=== PATIENT | male | born 1965 | race Caucasian/White ===

== ENCOUNTER 2016-09-08 16:07 | Observation (INO) | payer MEDICAID, OTHER ==
[~2016-09-08] VITALS: Ht 185.4 cm; Wt 160.3 kg
[2016-09-08 16:19] VITALS: BP 185/111; PULSE 102; RESP 22; O2SAT 98
--- NOTE | 2016-09-08 16:29 | ED.REPORT ---
HPI-General Illness Date of Service Sep 08, 2016 ED Provider: Henry Sultana MD A 51 year old male with a history of SVT, hypertension, hypothyroidism, obesity , suspected CAD and type II diabetes mellitus presents to the ED via EMS with heart palpitations that began at 1515. EMS report that the patient was tachycardic upon arrival. En route, rhythm strip revealed A-fib with RVR, then changed into a wide complex tachycardia suggestive of ventricular tachycardia. IV was placed en route and he cardioverted and is tachycardic upon arrival to the ED. Patient was reportedly sitting down and eating when his symptoms began and took 2 aspirin after onset and felt little relief. Associated symptoms include a chest pressure of 2/10 that radiates to his left arm, worsening anxiety and SOB. Patient recently had a stress test on 08/23 while admitted at [facility] for angina and a dizzy episode. His stress test revealed EF of 65% and possible V-tach. He was discharged with metoprolol. His current medication list includes levothyroxine, metformin and lisinopril. He denies any lightheadedness during the palpations. Nursing Notes Stated Complaint: CHEST PAIN Chief Complaint: Chest Pain Nursing Notes Reviewed: Yes Allergies: Coded Allergies: No Known Allergies (Unverified , 09/08/16) Scheduled Ergocalciferol (Vitamin D2) (Vitamin D) 400 Unit Tablet 12,000 UNIT PO DAILY Isosorbide MN ER (Isosorbide MN ER) 30 Mg Tab.er.24h 30 MG PO HS Levothyroxine Sodium (Levo-T) 100 Mcg Tablet 100 MCG PO DAILY Lisinopril (Lisinopril) 20 Mg Tablet 20 MG PO HS Metformin (Metformin) 500 Mg Tablet 500 MG PO DAILYWD Metoprolol Tartrate (Metoprolol Tartrate) 25 Mg Tablet 25 MG PO BID Trazodone (Trazodone) 100 Mg Tablet 100 MG PO HS General Time Seen by MD: 16:18 Chief Complaint Other (Heart palpitations) Hx Obtained From: Patient Arrived By: Ambulance Sudden in Onset?: Yes Onset Occurred: Just prior to arrival Symptom Duration: Since onset Location: : Chest Quality: Pressure Radiation: : Arm left Severity: Current: Pain level 2 out of 10 Severity: Maximum: Pain level 2 out of 10 Associated with: Reports: Chest pain (pressure ), Difficulty breathing, Shortness of breath Pertinent Negative: Pt denies other symptoms Recent Healthcare: Recent doctor visit, Recent hospitalization Past Medical History Past Medical History 1. SVT 2. Hypertension 3. Hypothyroidism 4. CAD - possible 5. Type II diabetes 6. Obesity Past Surgical History None reported at this time. Family History Reports: CAD < 40 years old, Coronary artery disease Smoking History Current Every Day Smoker Social History Alcohol Use: Denies alcohol use Drug Use: Denies drug use Other Social History: Good social support, , Local resident Ambulatory Status Independent Review of Systems Full Review of Systems Constitutional: Denies: Chills, Fever Respiratory: Reports: Shortness of breath Cardiovascular: Reports: Chest pain (chest pressure), Palpitations Musculoskeletal: Reports: Extremity pain (pain from chest radiates to left arm ) Neurologic: Denies: Change LOC Psychiatric: Reports: Anxiety Complete sys rev & neg: except as marked. Physical Exam Vital Signs Vital Signs Date Time Temp Pulse Resp B/P Pulse Ox O2 Delivery O2 Flow Rate FiO2 09/08/16 18:17 85 16 150/91 98 Room Air 09/08/16 17:33 84 16 174/103 99 Room Air 09/08/16 16:34 90 20 165/87 98 Room Air 09/08/16 16:19 36.8 102 22 185/111 98 Room Air Initial VS: Reviewed Neck: Supple, Non-tender, Full range of motion Skin: Warm, Dry, No cyanosis Neurologic: Alert, Oriented, Nonfocal Psychiatric: Mood/affect normal, Behavior normal, Normal thought content General/Constitutional: Awake, Alert Behavior: Positive: Anxious Head / Eyes: Atraumatic, Normocephalic, PERRL Respiratory / Chest: Atraumatic, Breath sounds NL, Breath sounds = bilat, No respiratory distress Cardiovascular: Heart rate NL, Regular rhythm, Heart sounds NL, No gallop, No murmurs, No rubs, Peripheral circulation NL, Pulses = bilaterally (Good distal pulses ) Abdomen: Atraumatic, Soft, Non-tender, No distention Upper Extremities Upper Extremity / MS: Atraumatic, Inspection NL, Neurologic intact, Vascular intact (Skin is warm and well perfused ) Lower Extremity / Pelvis / MS: Atraumatic, No swelling (No calf swelling ), Non -tender (No tenderness), Neurologic intact, Vascular intact (Skin is warm and well perfused ), No edema Neurologic: Oriented X3, Speech NL, No motor deficits, No sensory deficits, CN II - XII intact, Reflexes equal bilat Interpretation & Diagnostics Lab Results Interpretation Result Diagram: 09/08/16 1615 09/08/16 1615 Test 09/08/16 16:15 09/08/16 16:50 09/08/16 17:32 White Blood Count 13.5th/mm3 (3.8-10.1) Red Blood Count 5.44mil/mm3 (4.40-5.80) Hemoglobin 17.1g/dL (13.8-17.2) Hematocrit 50.3% (41.0-50.0) Mean Corpuscular Volume 92.5fL (81-100) Mean Corpuscular Hemoglobin 31.4pg (27.0-35.0) Mean Corpuscular Hemoglobin Concent 34.0% (32.0-37.0) Red Cell Distribution Width 14.2% (12.3-15.4) Platelet Count 259bil/L (150-400) Neutrophils (%) (Auto) 47.7% (40-74) Lymphocytes (%) (Auto) 38.5% (14-46) Monocytes (%) (Auto) 9.3% (4-12) Eosinophils (%) (Auto) 3.5% (0-5) Basophils (%) (Auto) 0.6% (0-3) Activated Partial Thromboplast Time 28.4sec (22.8-33.0) Sodium Level 136mEq/L (134-144) Potassium Level 4.4mEq/L (3.5-5.2) Chloride Level 98mEq/L (97-108) Carbon Dioxide Level 19mmol/L (18-29) Blood Urea Nitrogen 15mg/dL (6-24) Creatinine 1.06mg/dL (0.76-1.27) Estimat Glomerular Filtration Rate 78mL/min (>59) Glucose Level 163mg/dL (60-99) Calcium Level 9.9mg/dL (8.5-10.1) Magnesium Level 2.2mg/dL (1.6-2.6) Total Bilirubin 0.3mg/dL (0.0-1.2) Aspartate Amino Transf (AST/SGOT) 20U/L (0-50) Alanine Aminotransferase (ALT/SGPT) 19U/L (0-44) Alkaline Phosphatase 97U/L (25-150) Total Protein 7.7g/dL (6.4-8.4) Albumin 3.9g/dL (3.4-5.0) Thyroid Stimulating Hormone (TSH) 9.720uIU/mL (0.450-4.500) Hold Wylie Top Tube Received (Received) Free Thyroxine 1.07ng/dL (0.82-1.77) Hold Urine Received (Received) ECG Interpretation ECG Interpretation: Sinus Rhythm Rate 94 bpm Prolonged MA interval No acute ST changes No T wave abnormalities Time: 16:48 Interpreted by: ED physician X-Ray Chest Interpretation Chest Xray Interpretation: IMPRESSION: No acute cardiopulmonary disease. Dictated by: Zoran Lewis M.D. on 09/08/2016 at 16:51 Interpretation / Wet Read by: Interpret - Radiologist Re-Eval/Medical Decision Med Decision/Clinical Course A 51 year old male with a history of SVT, hypertension, hypothyroidism, obesity , suspected CAD and type II diabetes mellitus presents to the ED via EMS with heart palpitations that began at 1515. EMS report that the patient was tachycardic upon arrival. En route, rhythm strip revealed A-fib with RVR, then changed into a wide complex tachycardia suggestive of ventricular tachycardia. IV was placed en route and he cardioverted and is tachycardic upon arrival to the ED. Here in the emergency department the patient is extremely anxious though otherwise afebrile and hemodynamically stable. EKG was obtained as above and demonstrated sinus rhythm. I did however review his rhythm strip from EMS which clearly demonstrated sinus tachycardia converting to atrial fibrillation with RVR and then in a regular wide complex tachycardia suggestive of ventricular fibrillation versus atrial fibrillation with aberrant conduction. Patient was placed on continuous cardiac monitoring/pulse oximetry. No arrhythmia was detected on telemetry monitoring during his emergency department visit. In additional 162 mg of oral aspirin was administered here in the emergency department. The patient was very anxious and I administered 1 mg of IV Ativan. Reviewed recent chart from [facility] 08/09_17 2 wks ago Troponin and BNP unremarkable D-dimer negative CBC and CMP unremarkable except leukocytes = 13 Chest x-ray at the time was unremarkable Stress test "very poor exercise tolerance" LBBB during test, thought rate related though they mention that this may have been ventricular tachycardia Ejection fraction of 65% Abnormal motion of anteroseptal region during stress test Discharged on metoprolol 25 bid Here in the emergency department CBC was obtained which demonstrated mild leukocytosis was otherwise unremarkable. CMP was unremarkable. Troponin was negative. TSH was somewhat elevated at 9. Patient was discussed with rn homecare as I am somewhat concerned given that he did have a well captured episode of wide complex tachycardia concerning for ventricular tachycardia versus atrial fibrillation with aberrant conduction. Moreover, the patient has multiple coronary artery disease risk factors and was complaining of chest pain during this episode. This accommodation with his recent abnormal stress test concerns me that he may be at high risk for acute coronary syndrome versus significant hemodynamically and stable arrhythmia. Consulting rn homecare shares these concerns and recommends admission to the hospitalist service for further risk stratification and telemetry monitoring. Recommend increasing her metoprolol to 25 mg 3 times a day. First dose administered here. Transferred in stable condition. Time of Eval: 17:24 Patient Status: Condition improved Re-Evaluation/Progress Note: Patient is rechecked. He reports that he is feeling much better. He is informed of his EKG results and X-ray results. Time of Eval: 17:54 Patient Status: Condition improved Re-Evaluation/Progress Note: Patient understands and agrees with the plan to admit. All questions are addressed. Consultation #1: Referral / Consult Name: Amy Buckner MD Consulted With: Cardiology Call Returned at: 17:49 Buckle Strap Puncher: Will see patient, Agrees with eval, Agrees with plan Note: Agrees to consult Consultation #2: Referral / Consult Name: Jhon Hector MD Consulted With: Hospitalist Call Returned at: 18:20 Buckle Strap Puncher: Will see patient, Agrees with eval, Agrees with plan, Accepts admit Counseled Regarding: Diagnosis, Lab results, Need for admission Discharge & Departure Primary Impression: Chest pain Chest pain type: unspecified Qualified Code: R07.9 - Chest pain, unspecified Additional Impressions: Ventricular tachycardia Atrial fibrillation with RVR Lightheadedness Wide-complex tachycardia Hypothyroidism Hypothyroidism type: unspecified Qualified Code: E03.9 - Hypothyroidism, unspecified Leukocytosis Leukocytosis type: unspecified Qualified Code: D72.829 - Elevated white blood cell count, unspecified Disposition: ADMITTED TO HOSPITAL Discharge Condition All VS Reviewed: Yes Condition: Stable Referrals: Eleanor Lutz (PCP) Crit Care Except Billable Proc Time Spent: 105-134 minutes Services Performed: Patient management by me, Time spent at bedside, Reviewing test results, Reviewing imaging, Discussing patient care, Documentation in record, Time with fam/surrogate Scribe Attestation Portions of this note were transcribed by Reinaldo Young. I, Dr. Sultana personally performed the history, physical exam and medical decision-making; I reviewed and confirmed the accuracy of the information in the transcribed note. Signed by: Vee Oleary, 09/08/16 1800. copies to: Eleanor Lutz Beck O MD Sep 08, 2016 16:29 REINALDO YOUNG Sep 08, 2016 16:40
[2016-09-08 16:31] LABS: BASOPHILS % (AUTO) 0.6 % (0-3); NEUTROPHILS % (AUTO) 47.7 % (40-74)
[2016-09-08 16:34] VITALS: BP 165/87; PULSE 90; RESP 20; O2SAT 98
[2016-09-08 16:37] LABS: EOSINOPHILS % (AUTO) 3.5 % (0-5); MONOCYTES % (AUTO) 9.3 % (4-12); Mean Corpuscular Hemoglobin 31.4 pg (27.0-35.0); Mean Corpuscular Volume 92.5 fL (81-100); Platelet Count 259 bil/L (150-400)
--- NOTE | 2016-09-08 16:52 | DRSVH ---
PROCEDURE: X-RAY CHEST ONE VIEW, PORTABLE ([id number]) INDICATIONS: 51-year-old male with chest pain. TECHNIQUE: One view of the chest was acquired. COMPARISON: [facility], CR, XR CHEST 1V PORTABLE, 08/22/2016, 6:41 PM. FINDINGS: Surgical changes and devices: None. Lungs and pleura: No pleural effusions or pneumothorax. Lungs are clear. Mediastinum: Mediastinal contours appear normal. Heart size is normal. Bones and chest wall: No suspicious bony lesions. Overlying soft tissues appear unremarkable. IMPRESSION: No acute cardiopulmonary disease. Dictated by: Zoran Lewis M.D. on 09/08/2016 at 16:51 Approved by: Zoran Lewis M.D. on 09/08/2016 at 16:51
[2016-09-08 16:57] LABS: Magnesium 2.2 mg/dL (1.6-2.6); TROPONIN T < 0.010 ug/L (0.0-0.011)
[2016-09-08 17:33] VITALS: BP 174/103; PULSE 84; RESP 16; O2SAT 99
[2016-09-08 18:17] VITALS: BP 150/91; PULSE 85; RESP 16; O2SAT 98
[2016-09-08] MEDS ORDERED: Alum-Mag Hydrox-Simeth 30 mL Suspension PO PRN (18:55)
[2016-09-08] MEDS ORDERED: Polyethylene Glycol (PEG) 17 Gm Powder PO PRN (18:55)
[2016-09-08] MEDS ORDERED: Ondansetron 2 mg/mL 2 mL Inj IVPUSH PRN (18:55)
--- NOTE | 2016-09-08 19:18 | PCM.HPMED ---
Subjective Date of Service Sep 08, 2016 Primary Provider: Admitting Physician: Anibal Finch MD Primary Care Physician: Rosalie Martinez MD Attending Physician: Anibal Finch MD Chief Complaint: palpitation/1 hr History of Present Illness: 51-year-old gentleman with past medical history of hypertension, type II diabetes, obesity, recently diagnosed with SVT was brought in by EMS due to palpitation which happened 30 minutes prior to arrival. Patient had substernal chest pain 12/17 and palpitations 2 weeks ago and presented to [facility] on 08/23. He was admitted for overnight observation, underwent stress test. Serial troponin was negative. Stress test showed very poor exercise tolerance during the stress. He states he developed palpitations immediately after he was given medications for stress test. He reportedly developed a LBBB which was rate related. Note from [facility] says" initially , there was concern this would be wide complex tachycardia, but looking more carefully at the study it is probably rate related LBBB.". Next morning patient underwent resting images which showed ejection fraction of 65% with activities, 75% resting and 65% post stress. There was a small defect of mild intensity present in the midanterior septal location that was thought to be reversible. He was started on metoprolol 25 mg by mouth twice a day and Imdur 30 mg by mouth daily and discharged. He has been doing well for the last 2 weeks except for 2 -3 episodes of brief palpitations lasting 3 minutes. He states he developed sudden onset, more severe episode of palpitation this afternoon at the 3:00. He had associated lightheadedness and chest tightness which is very mild as compared to chest pain he had on last episode 2 weeks ago.He also states he felt extreme anxiety during episode .Denied diaphoresis.has mild dyspnea during episodes .he has lightheadedness during episodes On EMS arrival he was in A. fib with RVR rate of 186, he also had a brief run of which seems wide complex tachycardia. He converted to NSR in ED . ED Course:BP 185/111,Afib with RVR reverted to NSR,afebrile,EKG NSR no st/t wave changes troponin negative,TSH elevated at 9.7 Review of Systems: Comprehensive review of systems performed, pertinent positives and negatives included in history of present illness. Allergies Coded Allergies: No Known Allergies (Unverified , 09/08/16) Home Medications Recently started metoprolol 25 mg twice a day Recently started Imdur 30 mg by mouth daily Vitamin D 12,000 units daily Levothyroxine 100 MCG daily Lisinopril 20 mg by mouth daily Metformin 500 mg by mouth daily Trazodone 100 mg at bedtime PMH Recent diagnosis of SVT Hypertension Diabetes Surgical History ankle and knee surgery Family History Significant family history of coronary artery disease. His father had CABG ,2 paternal uncles with CABG as well One uncle of heart attack at age 60. Social History Occupation: unemployed Hx Alcohol Use: No Hx Substance Use: No Smoking Status: Current Every Day Smoker Exam Vital Signs Vital Sign - Last Date Time Temp Pulse Resp B/P Pulse Ox O2 Delivery O2 Flow Rate FiO2 09/08/16 18:17 85 16 150/91 98 Room Air 09/08/16 16:19 36.8 Exam Gen.Obsese patient is lying comfortably in hospital bed HEENT: Head is normocephalic atraumatic, Pupils equal and reactive, extraocular movements intact, Lungs clear to auscultation bilaterally Heart regular rate and rhythm without murmurs gallops or rubs Abdomen soft nontender without hepatosplenomegaly Extremities pulses are present dorsalis pedis posterior tibialis and radial. tSkin is warm and dry there are no rashes, Psych alert and oriented to person place and time Neuro cranial nerves II through XII are grossly intact Lymph: There is no lymphadenopathy appreciated in the cervical supra infraclavicular regions : no baltazar Lab and Diagnostics Result Diagram: 09/08/16 1615 09/08/16 1615 12-lead ECG NSR no st/t wave changes Assessment & Plan 51-year-old gentleman with past medical history of hypertension, type II diabetes, obesity, recently diagnosed with SVT was brought in by EMS due to palpitation which happened 30 minutes prior to arrival. # Episodes of SVT and Afib with RVR ,acute -patient has multiple episodes SVT(from [facility] records ) and Afib with RVR rate 186 in Ed and EMS strip,SVT with aberrancy ( EMT rythm strip) -increased home metoprolol to 25 mg tid as per cardiology -started heparin drip -may need ischemic workup given recent abnormal stress test .patient reluctant to have any repeat stress test given episodes of SVT during test.will try to get stress test results from [facility] -now in sinus rhythm -hemodynamically stable -he had a brief SVT with aberrancy in ED .VT unlikely given he was hemodynamically stable during rythm -tele,metry -echo ordred -electrolytes stabe, -troponin negative x2 ,will trend -will consider cardizem drip if any Afib with RVR -Dr Buckner will see him in am # suspected CAD,chronic -recent stress test abnormal with suspected reversible ischemia on midanterior septal location -cardiology consulted -c/w ASA,metoprolol -started atorvastatin -c/w Imdur # hypothyroidism -TSH elevated,patient states his synthroid was increased recently,will not increase dose for now -FT4 ordered # DM -hold metformin -insulin sliding scale #HTN -c/w metoprolol and lisinopril # DVt ppx -heparin drip # morbid obesity -BMI 46 #current smoker -nicotine patch Full code inpatient status given pending workup Resuscitation Status: CPR: Attempt Resuscitation copies to: Rosalie Martinez MD, Melaku MD Sep 08, 2016 19:18
[2016-09-08 20:19] VITALS: BP 149/88; PULSE 77; RESP 16; O2SAT 99
[2016-09-08] MEDS: Heparin 25K Unit/500mL 0.45 NS 25,000 UNIT in IV Premix 1 EACH IV SCH (20:22)
[2016-09-08] MEDS ORDERED: Glucose 40% Oral Gel 15 Gm Tube PO PRN (20:40)
[2016-09-08] MEDS ORDERED: METO25TA6 PO (20:40)
[2016-09-08] MEDS ORDERED: LEVO-88 PO (20:40)
[2016-09-08] MEDS ORDERED: LISI-567 PO (20:40)
[2016-09-08] MEDS ORDERED: ISOS30TA4 PO (20:40)
[2016-09-08] MEDS ORDERED: ERGO400T3 PO (20:40)
[2016-09-08] MEDS ORDERED: METF500T4 PO (20:40)
[2016-09-08] MEDS ORDERED: TRAZ-118 PO (20:40)
[2016-09-08 21:53] VITALS: PULSE 66
[2016-09-08] MEDS: Insulin LISPRO 300 Unit/3 mL Inj SUBQ SCH (21:53)
[2016-09-09] VITALS (9 sets, daily range): BP systolic 100–169; BP diastolic 63–94; PULSE 62–102; RESP 16–18; O2SAT 97–99
[2016-09-09] MEDS: Heparin 5,000 Unit/mL Inj IVPUSH PRN ×3 (02:19→21:04)
[2016-09-09] MEDS: Insulin LISPRO 300 Unit/3 mL Inj SUBQ SCH ×5 (07:36→21:05)
[2016-09-09 07:42] LABS: BASOPHILS % (AUTO) 0.8 % (0-3); EOSINOPHILS % (AUTO) 5.4 % (0-5); MONOCYTES % (AUTO) 8.4 % (4-12); Mean Corpuscular Volume 92.2 fL (81-100); NEUTROPHILS % (AUTO) 44.4 % (40-74); Platelet Count 214 bil/L (150-400)
[2016-09-09] MEDS: Isosorbide Mononitrate 30 mg ER24 Tablet PO SCH (07:43)
[2016-09-09 08:19] LABS: TROPONIN T 0.01 ug/L (0.0-0.011)
[2016-09-09 08:30] LABS: Magnesium 2.2 mg/dL (1.6-2.6)
--- NOTE | 2016-09-09 12:19 | PCM.PNMED ---
Subjective Date of Service Sep 09, 2016 Subjective Jhon Weeks is a 51-year-old man with past medical history significant of hypertension, type II diabetes, obesity, recently diagnosed with SVT was brought in by EMS due to palpitation which happened 30 minutes prior to arrival. Hospital day #2 Overnight: No acute events. Today: The patient denies any chest pain, shortness of breath, palpitations, or cough. He overall states he feels well. The remainder of the review of systems is negative except as noted above. Exam Vital Signs Vital Sign - Last Date Time Temp Pulse Resp B/P Pulse Ox O2 Delivery O2 Flow Rate FiO2 09/09/16 05:24 71 09/09/16 05:16 36.4 16 138/83 98 Room Air Exam Gen: Obese patient is lying comfortably in hospital bed HEENT: Head is normocephalic atraumatic, Pupils equal and reactive, extraocular movements intact, Lungs: clear to auscultation bilaterally Heart regular rate and rhythm without murmurs gallops or rubs Abdomen soft nontender without hepatosplenomegaly Extremities pulses are present dorsalis pedis posterior tibialis and radial. Skin is warm and dry there are no rashes, Psych alert and oriented to person place and time Neuro cranial nerves II through XII are grossly intact Lymph: There is no lymphadenopathy appreciated in the cervical supra infraclavicular regions : no Sommers IVs and Medications Medications Reviewed: Medications were reviewed in detail Lab and Diagnostics Result Diagram: 09/09/16 0730 09/08/16 1615 12-lead ECG NSR no st/t wave changes Assessment & Plan Jhon Weeks is a 51-year-old man with past medical history significant of hypertension, type II diabetes, obesity, recently diagnosed with SVT was brought in by EMS due to palpitation which happened 30 minutes prior to arrival. Hospital day #2 # SVT and Afib with RVR, acute -Patient has multiple episodes SVT (from [facility] records ) and Afib with RVR rate 186 in Ed and EMS strip, SVT with aberrancy (EMT rhythm strip) -Increased home metoprolol to 25 mg tid as per cardiology -Started heparin drip, continue for now -May need ischemic workup given recent abnormal stress test. Patient reluctant to have any repeat stress test given episodes of SVT during test. Will try to get stress test results from [facility] -Now in sinus rhythm, telemetry overnight also NSR -Hemodynamically stable -ECHO results pending -Troponin negative x3 -Will consider Cardizem drip if any Afib with RVR -CHADS-VASC score of 2, will initiate warfarin -Dr Buckner seeing the patient, appreciate the expertise # Suspected CAD,chronic -Recent stress test abnormal with small suspected reversible ischemia on midanterior septal location -Cardiology consulted -Continue Imdur, ASA, metoprolol -Started atorvastatin # Suspected obstructive sleep apnea -Likely contributing factor in patients arrhythmias -Recommend outpatient sleep study Chronic issues, present on admission: # Hypothyroidism -TSH elevated, patient states his Synthroid was increased recently, will not increase dose for now -FT4 normal, will need increase in Synthroid outpatient # Diabetes mellitus, type 2, not insulin using -Hold metformin -Lispro correctional insulin # Hypertension -Continue metoprolol and lisinopril DVT prophylaxis -heparin drip # Morbid Obesity -BMI 46 # Current smoker -Nicotine patch Dispo: Anticipate patient can be discharged tomorrow if remains stable on warfarin Resuscitation Status: CPR: Attempt Resuscitation Attending Statement The patient was seen and examined independently on 09/09/2016 and case discussed with Dr. Cuellar, I agree with the history, exam and plan as outlined in the note above. Yola Cuellar DO Sep 09, 2016 08:15 Anibal Finch MD Sep 09, 2016 12:46
--- NOTE | 2016-09-09 12:37 | DRSVH ---
[facility] [address] [place] [address] Echocardiogram Report Name: EFREN ZEPEDA SStudy Date: 017 Height: 73 in Hospital Exam Location: [facility] Weight: 353 lb Gender: Male BSA: 2.7 m2 : 1965 Age: 51 yrs BP: 138/83 mmHg Reason For Study: PALPITATIONS Ordering Physician: HOSPITALIST JEANIEerformed By: Neal Flowers Referring Physician: Rosalie Martinez Interpretation Summary 1. Normal left ventricular size, wall thickness and systolic function with an estimated EF of 60-65% 2. Normal right ventricular size and systolic function. 3. No evidence for valvular pathology. There is no old study for comparison Procedure: A two-dimensional transthoracic echocardiogram with color flow and Doppler was performed. The study quality was technically adequate. There is no prior echocardiogram noted for this patient. A contrast injection of Definity was performed to improve assessment of LV function. The patient was in normal sinus rhythm during the exam. Left Ventricle: The left ventricle is normal in size. Left ventricular wall thickness is borderline increased. The ejection fraction is estimated to be 60-65%. No obvious wall motion abnormalities. Right Ventricle: The right ventricle is normal in size and function. Atria: Both atria are normal in size. No color doppler evidence for an ASD. Mitral Valve: The mitral valve is normal in structure and function. There is no mitral regurgitation noted. Aortic Valve: The aortic valve is not well visualized. The aortic valve is grossly normal. There is no aortic valve stenosis. No aortic regurgitation is present. Tricuspid Valve: The tricuspid valve leaflets are thin and pliable. No tricuspid regurgitation. Pulmonary artery pressures cannot be estimated because of the lack of a measurable TR jet velocity. Pulmonic Valve: The pulmonic valve is not well visualized. Great Vessels: The aortic root is normal size. The dimensions of the ascending aorta are normal. The pulmonary artery is normal size. The IVC is dilated (diameter is greater than 2.1 cm) and it collapses less than 50% with a sniff. This suggests a high right atrial pressure of 15 mm Hg. Pericardium/ Pleura There is no pericardial effusion. There is no pleural effusion. MMode/2D Measurements & Calculations LVIDd: 4.4 cm LA dimension: 4.6 cm RA long axis Ao root diam LVIDs: 2.6 cm FS: 40.6 % LA A2 area: 25.7 cm RA area Aortic Jxn: 2.9 cm EPSS: 0.28 cm LA A4 area: 23.1 cm asc Aorta Diam IVSd: 1.1 cm LA length (vol) : 21.9 cm LVPWd: 0.95 cm RA vol Ao Arch Diam (Prox LA vol: 86.1 ml : 84.0 ml Trans): 2.6 cm LA vol index RA : 30.7 mm2 IVC diam: 2.9 cm LV mejía. diameter/BSA LV sys. diameter/BSA (cm/m^2): 1.6 (cm/m^2): 0.96 Doppler Measurements & Calculations Ao V2 max MV E max maciel MV E/A: 0.82 PA V2 max: 104.3 cm/sec : 137.0 cm/sec : 74.1 cm/sec Med Peak E' Maciel PA mean P.7 mmHg Ao max PG MV A max maciel PA Accel Time: 0.11 sec : 7.5 mmHg : 90.1 cm/sec E/E' med: 13.5 Ao mean PG Pulm A Revs Dur : 4.2 mmHg MV A dur: 0.12 sec MV dec time Ao V2 mean PA V2 mean Pulm A Revs Dur - MV A : 0.20 sec : 98.3 cm/sec : 79.6 cm/sec Dur: -0.05 msec Ao V2 VTI PA pr(Accel) : 28.3 cm : 29.1 mmHg Reading Physician:12:36 PM
--- NOTE | 2016-09-09 12:49 | PCM.PHAPRO ---
Progress Warfarin Management by Pharmacy: -Indication: afib -Home Dose: new start -Concurrent Anticoagulation: Heparin cardiac infusion -[id number] Score: 2 (htn and dm) -H/H 15.9/45.8 -PLT 214 -Inr Goal: 2-3 -Inr today = 1 -Plan: will initiate warfarin dosing with 10mg this evening and follow. serial inr's have been ordered Sarah Beth Mcclendon [facility] Sep 09, 2016 12:49
--- NOTE | 2016-09-09 16:49 | CONS ---
[address] [address] CONSULTATION REPORT PATIENT: EFREN ZEPEDA : 1965 MR#: [id number] ADMIT: 09/08/2016 JOB ID: [id number] DATE OF SERVICE: 09/09/2016 CHIEF COMPLAINT: I was asked by the hospital team to consult on this patient given arrhythmia and chest pain. HISTORY OF PRESENT ILLNESS: The patient is a 51-year-old man with past medical significant for hypertension, diabetes mellitus. He was recently seen at [facility] a couple of weeks ago with chest discomfort. He ruled out by serial cardiac markers and underwent stress testing, during which he exercised and developed a probable rate-related left bundle-branch block. Serial troponins were negative. He also had imaging obtained which showed a possible small defect in the mid anteroseptal location that was thought to be reversible. EF was normal. He was started on metoprolol to be taken twice a day as well as Imdur. He was discharged with plans for followup with Cardiology. Yesterday, he developed what he said felt like an anxiety attack, although he says he has no history of anxiety. He did not have chest pressure or chest tightness but ultimately called medics. Medics found him initially in sinus rhythm which went into atrial fibrillation versus another atrial arrhythmia with rapid ventricular response. Also had a wide complex tachyarrhythmia which could be aberrancy versus ventricular tachycardia. The patient spontaneously went out of this arrhythmia. He was admitted for overnight observation and is now ruled out by serial cardiac markers and he has not had any arrhythmias overnight. In speaking with him, he said he was only taking metoprolol tartrate once a day because he misunderstood the directions and now he is on metoprolol three times a day at 25 mg. He says he feels fine at this juncture. He denies problems with chest pain, chest tightness with exertion. He denies problems with shortness of breath. He denies orthopnea, PND, lower extremity edema. He does not have a history of sleep apnea, but there is suspicion that he may have this problem. PAST MEDICAL HISTORY/PROBLEM LIST: 1. History of diabetes mellitus. 2. History of hypertension. 3. History of hypothyroidism. CURRENT MEDICATIONS: 1. Metoprolol 25 mg twice a day although he was only taking once a day. 2. Imdur 30 mg a day. 3. Vitamin D. 4. Levothyroxine 100 mcg daily. 5. Lisinopril 20 daily. 6. Metformin 500 mg daily. 7. Trazodone at bedtime. ALLERGIES: No known drug allergies. SOCIAL HISTORY: He is a smoker, but is trying to cut down. Alcohol: He drinks none. FAMILY HISTORY: Notable for an uncle who suddenly. There are some heart problems in the family, but no early coronary disease. REVIEW OF SYSTEMS: Overall health: No fevers, chills, night sweats, or weight loss. GI: No problems with ulcers or blood in her stool. : No dysuria, hematuria. Pulmonary: No history of lung disease. Denies history of sleep apnea, although has never had a workup. Musculoskeletal: No acute joint pain or swelling. Skin: No rashes or skin breakdown. Heme: No easy bruising or bleeding. Neuro: No history of stroke or TIA. Endocrine: Has hypothyroid. No heat or cold intolerance. Psych: No acute issues. No history of anxiety. ENT: No sore throat or difficulty swallowing. Ophtho: No acute vision changes. All other review of systems of a 12 point review of systems are negative. PHYSICAL EXAMINATION: Blood pressure is 169/94, heart rate 83, sats are 97% on room air. General: In no acute distress, speaking in full sentences without apparent shortness of breath. Head and neck exam: Normocephalic, atraumatic. Neck: No obvious JV distention. No carotid bruits appreciated. Heart exam: Regular rate and rhythm. I do not appreciate murmurs, gallops, rubs appreciated. Lungs: Clear to auscultation. Back: No CVA tenderness to palpation. Abdomen: Soft, nondistended, nontender. Extremities: Warm, trace edema. 2+ DP pulses appreciated. Skin: Without breakdown appreciated. Neuro: Alert and oriented x3. Gait normal. Psych: Appropriate mood and affect. ENT: Mucous membranes moist. Ophtho: Vision grossly intact. DIAGNOSTIC STUDIES: EKG shows sinus rhythm. The rhythm strips from the medics show a sinus rhythm with an arrhythmia which is likely started due to a premature atrial contraction. Much of it is fast and much of it appears irregular, although some of it appears more regular suggestive of possible atrial tachycardia or possibly even atrial flutter. He then goes into a wide complex which appears irregular which would be likely consistent with AFib with aberrancy, and this all spontaneously stops. Other studies: Echo is now pending. LABORATORIES: Show white count 8.7, H and H 15.9 and 45.8, platelets 214,000. Chemistry shows sodium 138, potassium 4.3, chloride and bicarb 103 and 19 respectively. BUN and creatinine 14 and 0.95. Troponins all negative. A TSH is high at 9.72, but his free T4 is normal. IMPRESSION: The patient has had a recent admission with chest discomfort and palpitations at that time, however, he had normal EKGs and ruled out by serial cardiac markers. He had treadmill testing during which he had poor exercise tolerance and developed a left bundle-branch aberrancy. Imaging shows a possible small anteroseptal defect. I do not have the images to review. This might also be artifact based upon the description. He is ruled out by serial cardiac markers despite his elevated heart rates yesterday. Again, review of the strip suggests that this may be atrial fibrillation possibly with other atrial tachycardia or even atrial flutter. Although it is quite fast and the wide complex beats are irregular, it may be related to atrial fibrillation with aberrant conduction. PLAN: 1. I would continue him on metoprolol. Will monitor him overnight. Have him walk around and see how he feels. 2. Echocardiogram will be done today, and I will be reviewing that. 3. I would continue with metoprolol but also continue with anticoagulation. He has risk factors for stroke, and I would recommend that he go on warfarin with followup with his primary care doctor at [facility]. 50 minutes was spent speaking with and examining the patient. I also discussed my recommendations with the hospital team DEE
[2016-09-09] MEDS: Heparin 25K Unit/500mL 0.45 NS 25,000 UNIT in IV Premix 1 EACH IV SCH (18:13)
[2016-09-10 01:39] VITALS: BP 136/85; PULSE 72; RESP 16; O2SAT 96
[2016-09-10 04:50] VITALS: BP 118/74; PULSE 67; RESP 16; O2SAT 97
[2016-09-10 06:39] LABS: INR 0.97 ratio
[2016-09-10] MEDS: Insulin LISPRO 300 Unit/3 mL Inj SUBQ SCH ×2 (07:45→12:00)
[2016-09-10] MEDS: Isosorbide Mononitrate 30 mg ER24 Tablet PO SCH (07:52)
[2016-09-10 08:57] VITALS: PULSE 70
[2016-09-10] MEDS: Heparin 5,000 Unit/mL Inj IVPUSH PRN (09:09)
[2016-09-10 09:11] VITALS: BP 120/73; PULSE 72; RESP 18; O2SAT 98
--- NOTE | 2016-09-10 10:11 | PCM.DIMED ---
Discharge Instructions Date of Service Sep 10, 2016 Dates of Hospitalization Sep 08, 2016 at 19:01 Discharge Diagnosis Discharge Diagnosis Sinus tachycardia Atrial fibrillation Coronary artery disease Probable sleep apnea type 2 diabetes hypertension hypothyroidism Diet Low fat, Low Sodium Activity Limited until seen by PCP Call your provider Chest pain Patient Instructions Follow-up plan Call and make appointment with Dr. Aquino, the regional telecommunications specialist who saw you in the hospital, within 2 week. Also follow up with your primary care provider soon. Koby Shah MD Sep 10, 2016 10:11
[2016-09-10] MEDS ORDERED: ATOR40TA69 PO (10:23)
[2016-09-10] MEDS ORDERED: METO25TA6 PO (10:23)
[2016-09-10] MEDS ORDERED: WARF5TAB7 PO (10:23)
[2016-09-10] MEDS ORDERED: NIC7 TOPICAL (10:23)
[2016-09-10] MEDS ORDERED: WARF2TAB7 PO (10:23)
[2016-09-10] MEDS ORDERED: ASPI81TA3 PO (10:23)
[2016-09-10] MEDS: Heparin 25K Unit/500mL 0.45 NS 25,000 UNIT in IV Premix 1 EACH IV SCH (11:06)
--- NOTE | 2016-09-10 11:33 | DIS ---
[address] [address] DISCHARGE SUMMARY PATIENT: EFREN ZEPEDA : 1965 MR#: [id number] ADMIT: 09/08/2016 JOB ID: [id number] DIS: 09/10/2016 FINAL DIAGNOSES: 1. Symptomatic supraventricular tachycardia present on admission. Improved. 2. Subacute atrial fibrillation present on admission. Improved. 3. Probable underlying coronary artery disease present on admission. Stable. 4. Suspected obstructive sleep apnea present on admission. Stable. Further workup recommended. 5. Hypothyroidism present on admission. Stable. 6. Type 2 diabetes present on admission. Stable. 7. Hypertension present on admission. Stable. 8. Morbid obesity, BMI 46, present on admission. Stable. 9. Current tobacco use disorder present on admission. Improving. CONSULTANTS: Amy Buckner MD, Cardiology, September 09, 2016. OPERATION/PROCEDURES: None. BRIEF HISTORY: A 51-year-old, white male, who had episodes of chest pain, underwent a myocardial perfusion scan at [facility] which reportedly showed a small possible reversible defect in the mid anterior septal wall. The patient has symptomatic tachycardia and palpitations with this, had another such episode, presented to our hospital and was admitted. HOSPITAL COURSE: During his hospital course, the patient has not had further chest pain. Has had some episodes of SVT. Dr. Buckner reviewed records from [facility]. She is not convinced that the myocardial perfusion scan is absolutely abnormal. Some of this could be artifact. She also reviewed some of the rhythm strips and noted both supraventricular tachycardia as well as what appeared to be atrial flutter fibrillation, and does recommend Coumadin. The patient had serial troponins which were all negative. His echocardiogram done which showed normal left ventricle, right ventricle both in terms of function and size, no valvular heart disease. From a cardiac standpoint, the patient is stable to go home. We have added Lipitor. We have increased his metoprolol to 25 t.i.d., and we have added Coumadin and aspirin on board. Please note, the patient was having these episodes of palpitations and was taking his metoprolol tartrate 25 mg once daily only. Apparently, there was some confusion. That has been increased to three times a day, and he has not had any further significant episodes. The patient will be discharged home. Basically, we continued the patient's Imdur, Zestril, aspirin, and we have added Lipitor 40 and metoprolol we have increased to 25 t.i.d., and we have added Coumadin. The patient will see Dr. Buckner within a week or two, and she will make further decisions whether the patient might benefit from a heart cath or not, depending on symptoms, etc. TIME SPENT: 40 minutes of discharge time spent with this patient so far today. CC: MD, [facility]
--- NOTE | 2016-09-10 11:56 | PCM.PHAPRO ---
Progress Date of Service: Sep 10, 2016 Warfarin dosing per pharmacy Indication: new onset atrial fibrillation Goal INR: 2-3 Home dose: not applicable Date -Sep 10-Sep INR 1 0.97 INR change -0.03 Warf Dose 10MG XXX INR is subtherapeutic. Dr. Shah has ordered for patient to receive warfarin 7 mg PO daily as outpatient (plan is to discharge today). To follow up with PCP by Saturday09/12/16 to check INR. Ordered warfarin 7 mg PO one time today at 1700 if discharge is delayed. New start warfarin patient education was completed. Following subjects were reviewed: - Indication - INR - Signs and symptoms of clot/bleed - Side effects of warfarin - Warfarin interactions (food, medications, supplements, alcohol etc) - Missed doses Patient was engaged and asked appropriate questions throughout education. No further questions at this time. Thank you, Sandie Holman Pharmacist Sandie Holman Sep 10, 2016 11:56
--- NOTE | 2016-09-10 13:41 | PROG NOTE ---
[address] [address] PROGRESS NOTE PATIENT: EFREN ZEPEDA : 1965 MR#: [id number] ADMIT: 09/08/2016 JOB ID: [id number] DATE: 09/10/2016 CHIEF COMPLAINT: The patient came in with arrhythmia which by evaluation of strips felt to be probable atrial fibrillation with periods of aberrant conduction. He had a stress test that showed a small mild defect in the mid anteroseptal segment which I will need to review the stress images to see if this is possibly artifact. Despite his distress coming in with high heart rates, he has been ruled out by serial cardiac markers. His echocardiogram showed normal LV systolic function. No evidence for valvular pathology. CURRENT MEDICATIONS: Include: 1. Heparin. 2. Metoprolol 25 t.i.d. 3. Lisinopril 20 daily. 4. Levothyroxine 100 mcg daily. 5. Imdur 30 mg daily. 6. Aspirin. 7. Lipitor. 8. He has been placed on Coumadin. PHYSICAL EXAMINATION: Blood pressure 120/73, heart rate 72, sats are 98% on room air. General: In no acute distress. Speaking in full sentences without pressured breath. Head and neck exam: Normocephalic, atraumatic. Neck: No obvious JV distention. Heart exam: Regular rate and rhythm. Lungs clear. Abdomen soft. Extremities: Warm. LABORATORIES: Show an H and H 15.8, 46.4. Chemistry shows troponins continue to be less than 0.01. INR is only 0.97 on Coumadin. IMPRESSION: The patient had chest discomfort associated with palpitations where he now demonstrated that he has a arrhythmia. The review of the strips, which is all we have at this juncture, shows probable atrial fibrillation versus periods of atrial tachycardia with an irregular wide-complex arrhythmia which more likely represent AFib with aberrant conduction. This converted spontaneously back to sinus rhythm. PLAN: 1. Continue with metoprolol current dose. 2. Continue with warfarin and he will have to be followed at [facility] to make sure that he becomes therapeutic. 3. I will see him in followup, hopefully within the next couple of weeks to see how he is doing with these current medications. 4. Followup outpatient monitoring might be helpful as well. 20 minutes was spent discussing our findings and recommendations with the patient and the hospitalist team DEE
== END 2016-09-10 12:54 | disposition home or self-care (01) ==
LOC: EDUNIT# 16:07 → EDBD 16:07 → SED 16:07 → MPC 19:01
PROVIDERS: ADMIT Internal Medicine; ATTEND Internal Medicine
DX: I47.1 Supraventricular tachycardia (principal); E03.9 Hypothyroidism, unspecified; E11.9 Type 2 diabetes mellitus without complications; D72.829 Elevated white blood cell count, unspecified; I10 Essential (primary) hypertension; F17.200 Nicotine dependence, unspecified, uncomplicated; Z82.49 Family history of ischemic heart disease and other diseases of the circulatory system; E66.01 Morbid (severe) obesity due to excess calories; Z68.42 Body mass index [BMI] 45.0-49.9, adult; Z79.84 Long term (current) use of oral hypoglycemic drugs
CPT/HCPCS: 36415; 71010; 80053; 82274; 83735; 84439; 84443; 84484; 85014; 85018; 85025; 85610; 85730; 93005; 96374; 99291; 99292; C8929; G0378; J1644; J1815; J2060; Q9957